=== PATIENT | female | born 1975 ===

== ENCOUNTER 2021-05-01 06:10 | Day surgery (SDC) | payer OTHER ==
[2021-05-01] MEDS ORDERED: MORGIDOX100 MG PO (13:35)
[2021-05-01] MEDS ORDERED: NAPR500T14 PO (13:35)
== END 2021-05-01 18:40 | disposition home or self-care (01) ==
LOC: CIR.AMB 06:10
PROVIDERS: ATTEND Obstetrics & Gynecology
DX: D25.0 Submucous leiomyoma of uterus (principal); N84.0 Polyp of corpus uteri; Z20.822 Contact with and (suspected) exposure to COVID-19